=== PATIENT | male | born 1970 ===

== ENCOUNTER 2018-06-25 07:05 | Observation (INO) | payer OTHER ==
[2018-06-25] MEDS ORDERED: Albuterol-Ipratrop 3 mg / 0.5 (3 ml) UD INH STA (07:07)
[2018-06-25] MEDS: Albuterol-Ipratrop 3 mg / 0.5 (3 ml) UD INH STA ×2 (07:10→07:30)
[2018-06-25] MEDS ORDERED: Albuterol-Ipratrop 3 mg / 0.5 (3 ml) UD ONE (07:12)
[2018-06-25] MEDS ORDERED: Magnesium Sulfate 1 gm in D5W 1 GM/100 ML BAG IV ONE (07:32)
[2018-06-25] MEDS ORDERED: Albuterol 0.083% Inhal Sol (2.5 mg/3 mL) UD IH STA ×3 (07:33→09:11)
[2018-06-25 07:40] LABS: BASO # 0.1 K/uL (0.0-0.2); BASO % 0.6 % (0.0-2.0); EOS # 0.9 K/uL (0.0-0.7); EOS % 8.6 % (0.0-4.0); HEMOGLOBIN 16.9 g/dL (12.0-18.0); LYMPH # 1.5 K/uL (1.0-4.3); LYMPH % 13.6 % (20.0-40.0); MEAN CELL VOLUME 93.1 fL (80.0-94.0); MEAN CORPUSCULAR HEMOGLOBIN 32.6 pg (27.0-31.0); MEAN CORPUSCULAR HGB CONC 35.1 g/dL (33.0-37.0); MEAN PLATELET VOLUME 8.4 fL (7.2-11.7); MONO # 0.8 K/uL (0.0-0.8); MONO % 7.1 % (0.0-10.0); NEUT # 7.6 K/uL (1.8-7.0); NEUT % 70.1 % (50.0-75.0); NRBC % 0.1 % (0.0-2.0); RBC 5.19 Mil/uL (4.40-5.90); RED CELL DISTRIBUTION WIDTH 13.4 % (11.5-14.5); WHITE BLOOD COUNT 10.9 K/uL (4.8-10.8)
[2018-06-25 07:52] LABS: BLOOD UREA NITROGEN 19 mg/dL (9-20); CALCIUM 9.5 mg/dl (8.6-10.4); GFR NON-AFRICAN AMERICAN > 60
[2018-06-25 08:00] LABS: ALB/GLOB RATIO 1.1 (1.0-2.1); ALBUMIN 4.8 g/dL (3.5-5.0); ALT/SGPT 16 U/L (21-72); AST/SGOT 50 U/L (17-59)
--- NOTE | 2018-06-25 08:05 | C.PDOC ---
History Of Present Illness 47 year old male presents to ED with complaint of SOB and wheezing for 3-4 days. Patient has a PMHx of asthma. He was using his albuterol inhaler at home, but ran out. He admits to having a non-productive cough. He denies fever, chest pain, and palpitations. Time Seen by Provider: 06/25/18 07:08 Chief Complaint (Nursing): Shortness Of Breath History Per: Patient History/Exam Limitations: no limitations Onset/Duration Of Symptoms: Days (3-4) Current Symptoms Are (Timing): Still Present Current Respiratory Medications: Albuterol Associated Symptoms: denies: Fever, Chills, Chest Pain, Productive Cough Past Medical History Reviewed: Historical Data, Nursing Documentation, Vital Signs Vital Signs: Last Vital Signs Temp 99.1 F 06/25/18 07:06 Pulse 102 H 06/25/18 07:06 Resp 24 06/25/18 07:06 BP 159/119 H 06/25/18 07:06 Pulse Ox 90 L 06/25/18 07:06 Primary Care Provider: FAMILY PROVIDER,NO - Medical History PMH: Asthma, HTN, Hypercholesterolemia Surgical History: No Surg Hx Family History: States: Unknown Family Hx - Social History Hx Alcohol Use: Yes Hx Substance Use: No Review Of Systems Constitutional: Negative for: Fever, Chills ENT: Negative for: Nose Discharge, Nose Congestion, Throat Pain Cardiovascular: Negative for: Chest Pain, Palpitations Respiratory: Positive for: Cough, Shortness of Breath, Wheezing. Negative for: Hemoptysis, Sputum Gastrointestinal: Negative for: Nausea, Vomiting Physical Exam - Physical Exam Appears: Non-toxic, Other (mild distress; audible wheezing) Skin: Normal Color, Warm, Dry Head: Atraumatic, Normacephalic Neck: Normal ROM, Supple Chest: Symmetrical, No Deformity, No Tenderness Cardiovascular: Rhythm Regular, Other (mildly tachycardic) Respiratory: Accessory Muscle Use (mild), No Rales, No Rhonchi, Wheezing (diffuse expiratory wheezing bilaterally) Extremity: Capillary Refill (<2 seconds), No Swelling Extremity: Bilateral: Normal Color And Temperature, Normal ROM Pulses: Left Radial: Normal, Right Radial: Normal Neurological/Psych: Oriented x3, Normal Speech, Normal Cognition ED Course And Treatment - Laboratory Results Result Diagrams: 06/25/18 07:36 06/25/18 07:36 Lab Results: Total Bilirubin 1.4 mg/dL (0.2-1.3) H 06/25/18 07:36 AST 50 U/L (17-59) 06/25/18 07:36 ALT 16 U/L (21-72) L 06/25/18 07:36 Alkaline Phosphatase 90 U/L (38-126) 06/25/18 07:36 Total Protein 9.2 g/dL (6.3-8.3) H 06/25/18 07:36 Albumin 4.8 g/dL (3.5-5.0) 06/25/18 07:36 Globulin 4.5 gm/dL (2.2-3.9) H 06/25/18 07:36 Albumin/Globulin Ratio 1.1 (1.0-2.1) 06/25/18 07:36 ECG: Interpreted By Me, Viewed By Me (sinus tachycardia 115 bpm, normal axis, mild ST depressions V3-V5 - no prior EKG available) ECG Interpretation: Abnormal O2 Sat by Pulse Oximetry: 90 - Other Rad CXR X-Ray: Viewed By Me Interpretation: IMPRESSION: Mild medial right lower lobe atelectasis/infiltrate. Mild elevation of the right hemidiaphragm. Progress Note: CMP and CBC ordered for patient. CXR ordered for patient. Patient given solu-medrol, magnesium sulfate, and duoneb INH. EKG ordered for tele admission - abnormal, MEGHAN panel added, however patient has no chest pain. Disposition - Disposition - Scribe Statement The provider has reviewed the documentation as recorded by the Scribe (Anne Shay) All medical record entries made by the Scribe were at my direction and personally dictated by me. I have reviewed the chart and agree that the record accurately reflects my personal performance of the history, physical exam, medical decision making, and the department course for this patient. I have also personally directed, reviewed, and agree with the discharge instructions and disposition.
[2018-06-25 09:10] VITALS: BMI 26.6
[2018-06-25] MEDS ORDERED: Albuterol 0.083% Inhal Sol (2.5 mg/3 mL) UD ONE (09:21)
--- NOTE | 2018-06-25 10:38 | CP.PCM.HP ---
<Glory Sorto - Last Filed: 06/25/18 12:19> History of Present Illness - History of Present Illness History of Present Illness: Medicine Note for Hospitalist Service This is a 47 year old male with PMHx of Asthma (no prior intubations), Hypertension, and Hyperlipidemia who presented to the ED with shortness of breath, wheezing and a nonproductive cough for 4 days. Patient reports the past 4 days his Asthma has worsened. He has a nonproductive cough and reports he used all of his Albuterol inhaler. He followed up with a PCP last year - who placed on a medications for his HTN, HLD, and Asthma. Patient has not followed up with the PMD and therefore ran out of refills >6 months ago. He reports intermittent chest pain, not related to his breathing for the past 6 months. He reports becoming fatigued when ambulating long distances. He admits he can lay down flat at night and denied any lower extremity swelling. Admitted to a nonproductive cough, chills; denied fever, chest pain, abdominal pain, n/v/d/c, or urinary complaints. PMHx: As noted above PSHx: Denied Meds: Albuterol HFA as needed All: NKDA SHx: Admitted to smoking cigars 1 every few months for 1 year, admitted to drinking 6 beers every Tuesday, denied illicit drug use. Patient works in [employer], reports wearing PPE when there is smoke or dust during work. FHx: Unremarkable denied any cardiac, diabetes, or malignancies Present on Admission - Present on Admission Any Indicators Present on Admission: No Past Patient History - Past Social History Smoking Status: Never Smoked - CARDIAC Hx Hypercholesterolemia: Yes Hx Hypertension: Yes - PULMONARY Hx Asthma: Yes - PSYCHIATRIC Hx Substance Use: No - SURGICAL HISTORY Hx Surgeries: No - ANESTHESIA Hx Anesthesia: No Meds Allergies/Adverse Reactions: Allergies Allergy/AdvReac Type Severity Reaction Status Date / Time No Known Allergies Allergy Unverified 06/25/18 07:18 Physical Exam - Constitutional Appears: No Acute Distress - Head Exam Head Exam: NORMAL INSPECTION, NORMOCEPHALIC - Eye Exam Eye Exam: EOMI, Normal appearance, PERRL Pupil Exam: NORMAL ACCOMODATION - ENT Exam ENT Exam: Mucous Membranes Moist - Respiratory Exam Respiratory Exam: Wheezes (All throughout - lung bases ) - Cardiovascular Exam Cardiovascular Exam: Tachycardia - GI/Abdominal Exam GI & Abdominal Exam: Normal Bowel Sounds, Soft. absent: Distended, Tenderness - Extremities Exam Extremities exam: Positive for: normal inspection, pedal pulses present. Negative for: pedal edema, tenderness - Neurological Exam Neurological exam: Alert, CN II-XII Intact, Oriented x3 - Psychiatric Exam Psychiatric exam: Normal Affect, Normal Mood - Skin Skin Exam: Dry, Intact, Normal Color, Warm Results - Vital Signs Recent Vital Signs: Last Vital Signs Temp 99.1 F 06/25/18 07:06 Pulse 120 H 06/25/18 10:01 Resp 17 06/25/18 10:01 BP 125/82 06/25/18 10:01 Pulse Ox 94 L 06/25/18 10:01 - Labs Result Diagrams: 06/25/18 07:36 06/25/18 07:36 Labs: Laboratory Results - last 24 hr 06/25/18 06/25/18 07:36 07:36 WBC 10.9 H RBC 5.19 Hgb 16.9 Hct 48.3 MCV 93.1 MCH 32.6 H MCHC 35.1 RDW 13.4 Plt Count 298 MPV 8.4 Neut % (Auto) 70.1 Lymph % (Auto) 13.6 L [place] % (Auto) 7.1 Eos % (Auto) 8.6 H Baso % (Auto) 0.6 Neut # (Auto) 7.6 H Lymph # (Auto) 1.5 [place] # (Auto) 0.8 Eos # (Auto) 0.9 H Baso # (Auto) 0.1 Sodium 135 Potassium 5.4 H Chloride 98 Carbon Dioxide 26 Anion Gap 16 BUN 19 Creatinine 0.6 L Est GFR ( Amer) > 60 Est GFR (Non-Af Amer) > 60 Random Glucose 111 H Calcium 9.5 Total Bilirubin 1.4 H AST 50 ALT 16 L Alkaline Phosphatase 90 Total Protein 9.2 H Albumin 4.8 Globulin 4.5 H Albumin/Globulin Ratio 1.1 Assessment & Plan - Assessment and Plan (Free Text) Plan: Asthma Exacerbation Imaging: - CXR: Possible RML infiltrate Management: - Patient received albuteral x 3, solumedrol 125mg, Terbutaline, Magnesium in the ED - Started Duonebs Q6H - Started Solumedrol 40mg Q6H - Started Brovana Q12H - Started Singular 10mg QHS - Rocephin x 1 dose, Azithromycin 500mg PO daily x 5 days Hx Hypertension Hx of Intermittent Chest Pain throughout past 6 months - EKG- sinus tachycardia 115 bpm, normal axis, mild ST depressions V3-V5 - no prior EKG available - Patient is denied any chest pain at this moment - Admits to being on 1 medication, last taken > 6 months ago, noncompliant - No family hx of cardiac diseases Imaging: - ECHO: ordered, pending Management: - Initial MEGHAN - negative but elevated CKMB, f/u 2 more MEGHAN with correlating EKGs - Normotensive on admission, will monitor throughout admission Hx Hyperlipidemia - Patient reports he was on a medication, last taken > 6 months ago, noncompliant - F/U lipid panel, hemoglobin A1C, thyroid panel Prophylactic Measures - GI PPX: Protonix - due to anticipated prolonged use of steroids - DVT PPX: SCDs are suffice, patient is low risk - VTE not indicated DW Dr. Eli, Glory Sorto DO, PGY2 <Pelon Eli H - Last Filed: 06/25/18 14:14> Results - Vital Signs Recent Vital Signs: Last Vital Signs Temp 98.7 F 06/25/18 12:00 Pulse 100 H 06/25/18 12:00 Resp 17 06/25/18 12:00 BP 151/84 H 06/25/18 12:00 Pulse Ox 98 06/25/18 12:00 - Labs Result Diagrams: 06/25/18 07:36 06/25/18 07:36 Labs: Laboratory Results - last 24 hr 06/25/18 06/25/18 07:36 07:36 WBC 10.9 H RBC 5.19 Hgb 16.9 Hct 48.3 MCV 93.1 MCH 32.6 H MCHC 35.1 RDW 13.4 Plt Count 298 MPV 8.4 Neut % (Auto) 70.1 Lymph % (Auto) 13.6 L [place] % (Auto) 7.1 Eos % (Auto) 8.6 H Baso % (Auto) 0.6 Neut # (Auto) 7.6 H Lymph # (Auto) 1.5 [place] # (Auto) 0.8 Eos # (Auto) 0.9 H Baso # (Auto) 0.1 Sodium 135 Potassium 5.4 H Chloride 98 Carbon Dioxide 26 Anion Gap 16 BUN 19 Creatinine 0.6 L Est GFR ( Amer) > 60 Est GFR (Non-Af Amer) > 60 Random Glucose 111 H Calcium 9.5 Total Bilirubin 1.4 H AST 50 ALT 16 L Alkaline Phosphatase 90 Total Creatine Kinase 311 H CK-MB (Mass) 3.79 H Troponin I < 0.0120 NT-Pro-B Natriuret Pep < 11.1 Total Protein 9.2 H Albumin 4.8 Globulin 4.5 H Albumin/Globulin Ratio 1.1 Attending/Attestation - Attestation I have personally seen and examined this patient.: Yes I have fully participated in the care of the patient.: Yes I have reviewed all pertinent clinical information: Yes Notes (Text): 06/25/18 14:11 Medical attending: Patient was seen and examined by me. Agree with the above note by the resident The patient was not in any acute distress when I came and saw with the medical laboratory manager He was speaking in full sentences, on exam there were wheezing. 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
--- NOTE | 2018-06-25 10:53 | RAD ---
HISTORY: SOB COMPARISON: None available TECHNIQUE: Chest, one view. FINDINGS: Examination limited by habitus. LUNGS: Mild medial right lower lobe atelectasis/infiltrate. Please note that chest x-ray has limited sensitivity for the detection of pulmonary masses. PLEURA: No significant pleural effusion identified. No definite pneumothorax . CARDIOVASCULAR: Heart size appears top normal. No significant atherosclerotic calcification present. OSSEOUS STRUCTURES: No acute osseous abnormality identified. VISUALIZED UPPER ABDOMEN: Elevation of the right hemidiaphragm. OTHER FINDINGS: None. IMPRESSION: Mild medial right lower lobe atelectasis/infiltrate. Mild elevation of the right hemidiaphragm.
[2018-06-25 11:02] LABS: CK-MB 3.79 ng/mL (0.0-3.38)
[2018-06-25 11:12] LABS: B-TYPE NATRIURETIC PEPTIDE < 11.1 pg/mL (0-450)
[2018-06-25] MEDS: Albuterol-Ipratrop 3 mg / 0.5 (3 ml) UD INH SCH ×2 (14:38→19:39)
[2018-06-25 17:43] LABS: CK-MB 2.46 ng/mL (0.0-3.38)
[2018-06-25] MEDS: Arformoterol 15 mcg/2 ml Inh Sol INH SCH (21:30)
[2018-06-25] MEDS: MethylPREDNISolone 40 mg Vial IVP SCH (21:31)
[2018-06-25] MEDS ORDERED: MethylPREDNISolone 40 mg Vial IVP SCH (22:00)
[2018-06-26] MEDS: MethylPREDNISolone 40 mg Vial IVP SCH ×3 (03:19→17:29)
[2018-06-26 04:00] LABS: BASO % 0.1 % (0.0-2.0); HEMOGLOBIN 15.5 g/dL (12.0-18.0); LYMPH # 0.7 K/uL (1.0-4.3); LYMPH % 4.9 % (20.0-40.0); MEAN CELL VOLUME 94.1 fL (80.0-94.0); MEAN CORPUSCULAR HEMOGLOBIN 31.3 pg (27.0-31.0); MEAN CORPUSCULAR HGB CONC 33.3 g/dL (33.0-37.0); MEAN PLATELET VOLUME 8.2 fL (7.2-11.7); MONO # 0.6 K/uL (0.0-0.8); MONO % 3.9 % (0.0-10.0); NEUT # 13.9 K/uL (1.8-7.0); NEUT % 91.1 % (50.0-75.0); PLATELET COUNT 283 K/uL (130-400); RBC 4.94 Mil/uL (4.40-5.90); RED CELL DISTRIBUTION WIDTH 13.4 % (11.5-14.5); WHITE BLOOD COUNT 15.2 K/uL (4.8-10.8)
[2018-06-26 04:27] LABS: LDL CHOLESTEROL 183 mg/dL (0-129)
[2018-06-26 04:29] LABS: CK-MB 2.17 ng/mL (0.0-3.38)
[2018-06-26 04:37] LABS: BANDS 1 % (0-2); LYMPHOCYTE 4 % (20-40); MONOCYTE 3 % (0-10); NEUTROPHIL 92 % (50-75); PLATELET ESTIMATE NORMAL (NORMAL); TOTAL CELLS COUNTED 100
[2018-06-26 04:39] LABS: ALB/GLOB RATIO 1.3 (1.0-2.1); ALBUMIN 4.3 g/dL (3.5-5.0); ALT/SGPT 18 U/L (21-72); AST/SGOT 21 U/L (17-59); BLOOD UREA NITROGEN 17 mg/dL (9-20); CALCIUM 9.3 mg/dl (8.6-10.4); GFR NON-AFRICAN AMERICAN > 60; HDL CHOLESTEROL 40 mg/dL (30-70)
[2018-06-26] MEDS: Albuterol-Ipratrop 3 mg / 0.5 (3 ml) UD INH SCH ×2 (07:53→20:05)
--- NOTE | 2018-06-26 08:55 | CP.PCM.PN ---
<AlyssaCy - Last Filed: 06/26/18 11:41> Subjective - Date & Time of Evaluation Date of Evaluation: 06/26/18 Time of Evaluation: 09:00 - Subjective Subjective: PGY1 Medicine progress note for Dr. Gamez Pt seen and examined at bedside. Resting comfortably. No acute events overnight. Denies acute complaints. Denies fever, chills, chest pain, sob, palpitations, abdominal pain, n/v/d, swelling, leg pain , headache, dizziness, lightheadedness. Ambulating well. Objective - Vital Signs/Intake and Output Vital Signs (last 24 hours): Temp Pulse Resp BP Pulse Ox 97.9 F 78 18 126/85 95 06/26/18 07:00 06/26/18 07:45 06/26/18 07:00 06/26/18 07:00 06/26/18 07:45 - Medications Medications: Current Medications Albuterol/Ipratropium (Duoneb 3 Mg/0.5 Mg (3 Ml) Ud) 3 ml INH RQ6 PANKAJ Last Admin: 06/26/18 07:53 Dose: 3 ml Arformoterol Tartrate (Brovana) 15 mcg INH RQ12@1000,2200 PANKAJ Last Admin: 06/25/18 21:30 Dose: 15 mcg Azithromycin (Zithromax) 500 mg PO DAILY [facility]; Protocol Stop: 06/30/18 10:01 Methylprednisolone (Solu-Medrol) 40 mg IVP Q6H [facility] Last Admin: 06/26/18 03:19 Dose: 40 mg Montelukast Sodium (Singulair) 10 mg PO HS [facility] Last Admin: 06/25/18 21:30 Dose: 10 mg Pantoprazole Sodium (Protonix Ec Tab) 40 mg PO DAILY [facility] Pneumococcal Polyvalent Vaccine (Pneumovax 23 Vaccine) 0.5 ml SC .ONCE ONE Stop: 06/27/18 12:48 - Labs Labs: 06/26/18 03:57 06/26/18 03:57 - Additional Findings Additional findings: - Constitutional Appears: No Acute Distress - Head Exam Head Exam: NORMAL INSPECTION, NORMOCEPHALIC - Eye Exam Eye Exam: EOMI, Normal appearance, PERRL Pupil Exam: NORMAL ACCOMODATION - ENT Exam ENT Exam: Mucous Membranes Moist - Respiratory Exam Respiratory Exam: End expiratory wheezes throughout. Absent: rhonchi, rales, respiratory distress, stridor - Cardiovascular Exam Cardiovascular Exam: RRR, +s1/+s2. Absent: tachycardia - GI/Abdominal Exam GI & Abdominal Exam: Normal Bowel Sounds, Soft. absent: Distended, Tenderness - Extremities Exam Extremities exam: Positive for: normal inspection, pedal pulses present. Negative for: pedal edema, tenderness - Neurological Exam Neurological exam: Alert, Oriented x3 - Psychiatric Exam Psychiatric exam: Normal Affect, Normal Mood - Skin Skin Exam: Dry, Intact, Normal Color, Warm Assessment and Plan - Assessment and Plan (Free Text) Assessment: Asthma Exacerbation Imaging: - CXR: Mild medial RLL atelectasis/infiltrate. Mild elevation of the right hemidiaphragm. Management: - Patient received albuteral x 3, solumedrol 125mg, Terbutaline, Magnesium in the ED - Duonebs Q6H - Solumedrol 40mg Q6H - Brovana Q12H - Singular 10mg QHS - Rocephin x 1 dose given, Azithromycin 500mg PO daily x 5 days Hx Hypertension Hx of Intermittent Chest Pain throughout past 6 months - EKG- sinus tachycardia 115 bpm, normal axis, mild ST depressions V3-V5 - no prior EKG available - Patient is denied any chest pain at this moment - Admits to being on 1 medication, last taken > 6 months ago, noncompliant - No family hx of cardiac diseases Imaging: - ECHO: ordered, pending Management: - Troponin x3 are negative - Normotensive on admission, will monitor throughout admission Hx Hyperlipidemia - Patient reports he was on a medication, last taken > 6 months ago, noncompliant - Lipid panel shows TG/CHL/LDL/HDL is 70/229/183/40 - Hemoglobin A1C is 5.8 - TSH/FT4 are normal at 0.9/0.9 - Will add Crestor 5 mg PO QHS tonight Prophylactic Measures - GI PPX: Protonix - due to anticipated prolonged use of steroids - DVT PPX: SCDs, chemical VTE not indicated Discussed with Dr. Franco Shah PGY1 <Lorne Gamez - Last Filed: 06/27/18 19:04> Objective - Vital Signs/Intake and Output Vital Signs (last 24 hours): Temp Pulse Resp BP Pulse Ox 98.3 F 75 20 130/91 H 94 L 06/27/18 08:39 06/27/18 11:43 06/27/18 08:39 06/27/18 08:39 06/27/18 15:30 - Labs Labs: 06/27/18 06:35 06/27/18 06:35 Attending/Attestation - Attestation I have personally seen and examined this patient.: Yes I have fully participated in the care of the patient.: Yes I have reviewed all pertinent clinical information, including history, physical exam and plan: Yes Notes (Text): SEEN AND EXAMINED ASTHMA EXACERBATION OF ASTHMA HYPERTENSION HYPERLIPIDEMIA CONTINUE SOLUMEDROL AND ANTIBIOTICS PATIENT HAS BILATERAL WHEEZING POSSIBLE DISCHARGE TOMORROW IF HE GETS BETTER
[2018-06-26] MEDS ORDERED: Albuterol-Ipratrop 3 mg / 0.5 (3 ml) UD INH STA (08:59)
[2018-06-26] MEDS: Enoxaparin 40 mg Syringe SC SCH (09:29)
[2018-06-26] MEDS: Pantoprazole 40 mg EC Tab PO SCH (09:29)
[2018-06-26] MEDS ORDERED: MethylPREDNISolone 40 mg Vial IVP SCH (12:00)
--- NOTE | 2018-06-26 14:57 | CARD ---
APPROVED REPORT Date of service: 06/26/2018 EXAM: Two-dimensional and M-mode echocardiogram with Doppler and color Doppler. Other Information Quality : GoodRhythm : RISK FACTORS Hypertension Hyperlipidemia 2D DIMENSIONS IVSd1.0 (0.7-1.1cm)LVDd4.3 (3.9-5.9cm) PWd1.0 (0.7-1.1cm)LA Lmxbhb07 (18-58mL) LVDs2.9 (2.5-4.0cm)FS (%) 33.0 % LVEF (%)61.8 (>50%)LVEF (José's)64.80 % M-Mode DIMENSIONS Left Atrium (MM)3.07 (2.5-4.0cm)IVSd0.86 (0.7-1.1cm) Aortic Root3.07 (2.2-3.7cm)LVDd5.73 (4.0-5.6cm) Aortic Cusp Exc.1.88 (1.5-2.0cm)PWd0.92 (0.7-1.1cm) FS (%) 34 %LVDs3.79 (2.0-3.8cm) LVEF (%)62 (>50%) Mitral Valve MV E Lktvgvcp72.6cm/sMV A Qhjdnybz95.7cm/sE/A ratio1.0 TDI Lateral E' Peak V13.60cm/sMedial E' Peak V9.19cm/sE/Lateral E'6.6 E/Medial E'9.7 <Conclusion> tds. poor window. lv size appears mildly dilated. normal size la,ra & rv. normal lv wall thickness,systolic & diastolic function with lvef of 60-65%. aortic & pv not well seen ,probably normal. mitral & tv appears normal. nomral doppler. nomral size aortic root. no pericrdial effusion.
--- NOTE | 2018-06-26 15:26 | CARD ---
APPROVED REPORT Date of service: 06/25/2018 EKG Measurement Heart [id number] <Conclusion> Sinus tachycardia ST & T wave abnormality,non specific Abnormal ECG
[2018-06-26 17:56] VITALS: RESP 20
[2018-06-26] MEDS: Arformoterol 15 mcg/2 ml Inh Sol INH SCH (20:05)
[2018-06-27] MEDS: Albuterol-Ipratrop 3 mg / 0.5 (3 ml) UD INH SCH ×3 (01:32→13:46)
[2018-06-27] MEDS: MethylPREDNISolone 40 mg Vial IVP SCH ×2 (02:30→10:11)
[2018-06-27 06:48] LABS: BASO % 0.1 % (0.0-2.0); HEMOGLOBIN 15.5 g/dL (12.0-18.0); LYMPH # 1.4 K/uL (1.0-4.3); MEAN CELL VOLUME 94.7 fL (80.0-94.0); MEAN CORPUSCULAR HEMOGLOBIN 31.9 pg (27.0-31.0); MEAN CORPUSCULAR HGB CONC 33.7 g/dL (33.0-37.0); MEAN PLATELET VOLUME 8.5 fL (7.2-11.7); MONO # 0.9 K/uL (0.0-0.8); MONO % 5.4 % (0.0-10.0); NEUT % 86.5 % (50.0-75.0); NRBC % 0.1 % (0.0-2.0); PLATELET COUNT 304 K/uL (130-400); RBC 4.85 Mil/uL (4.40-5.90); RED CELL DISTRIBUTION WIDTH 13.6 % (11.5-14.5); WHITE BLOOD COUNT 17.3 K/uL (4.8-10.8)
[2018-06-27 07:33] LABS: ALB/GLOB RATIO 1.5 (1.0-2.1); ALBUMIN 4.2 g/dL (3.5-5.0); ALT/SGPT 25 U/L (21-72); AST/SGOT 31 U/L (17-59); BLOOD UREA NITROGEN 17 mg/dL (9-20); GFR NON-AFRICAN AMERICAN > 60
[2018-06-27 08:33] LABS: LYMPHOCYTE 10 % (20-40); MONOCYTE 5 % (0-10); NEUTROPHIL 85 % (50-75); PLATELET ESTIMATE NORMAL (NORMAL); TOTAL CELLS COUNTED 100
[2018-06-27 08:41] VITALS: BP 130/91; TEMP 98.3; O2SAT 94
--- NOTE | 2018-06-27 09:43 | CP.PCM.DIS ---
Provider - Provider Date of Admission: 06/25/18 10:21 Attending physician: Lorne Gamez MD Time Spent in preparation of Discharge (in minutes): 35 Diagnosis - Discharge Diagnosis (1) Community acquired pneumonia Status: Acute (2) Asthma Status: Acute (3) Dyslipidemia Status: Chronic (4) Hypertension Status: Chronic Hospital Course - Lab Results Lab Results: Most Recent Lab Values WBC 17.3 K/uL (4.8-10.8) H 06/27/18 06:35 RBC 4.85 Mil/uL (4.40-5.90) 06/27/18 06:35 Hgb 15.5 g/dL (12.0-18.0) 06/27/18 06:35 Hct 45.9 % (35.0-51.0) 06/27/18 06:35 MCV 94.7 fL (80.0-94.0) H 06/27/18 06:35 MCH 31.9 pg (27.0-31.0) H 06/27/18 06:35 MCHC 33.7 g/dL (33.0-37.0) 06/27/18 06:35 RDW 13.6 % (11.5-14.5) 06/27/18 06:35 Plt Count 304 K/uL (130-400) 06/27/18 06:35 MPV 8.5 fL (7.2-11.7) 06/27/18 06:35 Neut % (Auto) 86.5 % (50.0-75.0) H 06/27/18 06:35 Lymph % (Auto) 8.0 % (20.0-40.0) L 06/27/18 06:35 [place] % (Auto) 5.4 % (0.0-10.0) 06/27/18 06:35 Eos % (Auto) 0.0 % (0.0-4.0) 06/27/18 06:35 Baso % (Auto) 0.1 % (0.0-2.0) 06/27/18 06:35 Neut # (Auto) 15.0 K/uL (1.8-7.0) H 06/27/18 06:35 Lymph # (Auto) 1.4 K/uL (1.0-4.3) 06/27/18 06:35 [place] # (Auto) 0.9 K/uL (0.0-0.8) H 06/27/18 06:35 Eos # (Auto) 0.0 K/uL (0.0-0.7) 06/27/18 06:35 Baso # (Auto) 0.0 K/uL (0.0-0.2) 06/27/18 06:35 Neutrophils % (Manual) 85 % (50-75) H 06/27/18 06:35 Band Neutrophils % 1 % (0-2) 06/26/18 03:57 Lymphocytes % (Manual) 10 % (20-40) L 06/27/18 06:35 Monocytes % (Manual) 5 % (0-10) 06/27/18 06:35 Platelet Estimate Normal (NORMAL) 06/27/18 06:35 RBC Morphology Normal 06/26/18 03:57 Sodium 136 mmol/L (132-148) 06/27/18 06:35 Potassium 4.0 mmol/L (3.6-5.2) 06/27/18 06:35 Chloride 99 mmol/L (98-107) 06/27/18 06:35 Carbon Dioxide 23 mmol/L (22-30) 06/27/18 06:35 Anion Gap 18 (10-20) 06/27/18 06:35 BUN 17 mg/dL (9-20) 06/27/18 06:35 Creatinine 0.6 mg/dL (0.8-1.5) L 06/27/18 06:35 Est GFR ( Amer) > 60 06/27/18 06:35 Est GFR (Non-Af Amer) > 60 06/27/18 06:35 Random Glucose 150 mg/dL (75-110) H 06/27/18 06:35 Hemoglobin A1c 5.8 % (4.2-6.5) 06/26/18 03:57 Calcium 9.0 mg/dl (8.6-10.4) 06/27/18 06:35 Phosphorus 3.4 mg/dL (2.5-4.5) 06/27/18 06:35 Magnesium 2.1 mg/dL (1.6-2.3) 06/27/18 06:35 Total Bilirubin 0.3 mg/dL (0.2-1.3) 06/27/18 06:35 AST 31 U/L (17-59) 06/27/18 06:35 ALT 25 U/L (21-72) 06/27/18 06:35 Alkaline Phosphatase 85 U/L (38-126) 06/27/18 06:35 Total Creatine Kinase 170 U/L (55-170) 06/26/18 03:57 CK-MB (Mass) 2.17 ng/mL (0.0-3.38) 06/26/18 03:57 Troponin I < 0.0120 ng/mL (0.00-0.120) 06/26/18 03:57 NT-Pro-B Natriuret Pep < 11.1 pg/mL (0-450) 06/25/18 07:36 Total Protein 7.0 g/dL (6.3-8.3) 06/27/18 06:35 Albumin 4.2 g/dL (3.5-5.0) 06/27/18 06:35 Globulin 2.9 gm/dL (2.2-3.9) 06/27/18 06:35 Albumin/Globulin Ratio 1.5 (1.0-2.1) 06/27/18 06:35 Triglycerides 70 mg/dL (0-149) 06/26/18 03:57 Cholesterol 229 mg/dL (0-199) H 06/26/18 03:57 LDL Cholesterol Direct 183 mg/dL (0-129) H 06/26/18 03:57 HDL Cholesterol 40 mg/dL (30-70) 06/26/18 03:57 Free T4 0.90 ng/dL (0.78-2.19) 06/26/18 03:57 TSH 3rd Generation 0.90 mIU/L (0.46-4.68) 06/26/18 03:57 - Hospital Course Hospital Course: On admission: This is a 47 year old male with PMHx of Asthma (no prior intubations), Hypertension, and Hyperlipidemia who presented to the ED with shortness of breath, wheezing and a nonproductive cough for 4 days. Patient reports the past 4 days his Asthma has worsened. He has a nonproductive cough and reports he used all of his Albuterol inhaler. He followed up with a PCP last year - who placed on a medications for his HTN, HLD, and Asthma. Patient has not followed up with the PMD and therefore ran out of refills >6 months ago. He reports intermittent chest pain, not related to his breathing for the past 6 months. He reports becoming fatigued when ambulating long distances. He admits he can lay down flat at night and denied any lower extremity swelling. Admitted to a nonproductive cough, chills; denied fever, chest pain, abdominal pain, n/v/d/c, or urinary complaints. Hospital course: CXR: Mild medial RLL atelectasis/infiltrate. Mild elevation of the right hemidiaphragm. Pt noted to have prominent wheezing in the ED, treated with duonebs, steroids, magnesium. Started on azithromycin. Troponin x3 are negative. Echocardiogram (06/26) shows LVEF 60-65. Mildly dilated LV. Statin started for lipidemia. Pt's breathing status improved during hosptalization. Cough is reduced as well. On discharge interview, denies fever, chills, chest pain, sob, palpitations, abdominal pain, n/v/d, swelling, leg pain , headache, dizziness, lightheadedness, hemoptysis. This is a summary of the hospital course. Please see EMR for full details. Discharge Exam - Additional Findings Additional findings: - Constitutional Appears: No Acute Distress - Head Exam Head Exam: NORMAL INSPECTION, NORMOCEPHALIC - Eye Exam Eye Exam: EOMI, Mild scleral injection bilaterally, watery (no discharge), PERRL - ENT Exam ENT Exam: Mucous Membranes Moist. Minimal pharyngeal erythema, no exudate, no tonsillar enlargement. No lymphadenopathy. - Respiratory Exam Respiratory Exam: CTA bilaterally. Absent: wheezing, rhonchi, rales, respiratory distress, stridor - Cardiovascular Exam Cardiovascular Exam: RRR, +s1/+s2. Absent: tachycardia - GI/Abdominal Exam GI & Abdominal Exam: Normal Bowel Sounds, Soft. absent: Distended, Tenderness - Extremities Exam Extremities exam: Positive for: normal inspection, pedal pulses present. Negative for: pedal edema, tenderness - Neurological Exam Neurological exam: Alert, Oriented x3 - Psychiatric Exam Psychiatric exam: Normal Affect, Normal Mood - Skin Skin Exam: Dry, Intact, Normal Color, Warm Discharge Plan - Discharge Medications Prescriptions: Albuterol HFA [Ventolin HFA 90 mcg/actuation (8 g)] 2 puff IH [id number] PRN #1 inh aler PRN Reason: Shortness Of Breath Atorvastatin [Lipitor] 10 mg PO DIN #30 tab Azithromycin [Zithromax] 500 mg PO DAILY #3 tab Fluticasone/Vilanterol 100/25 [Breo Ellipta 100-25 MCG INH] 1 puff INH BID #1 inh Methylprednisolone [Medrol Dose Pack (21 tabs)] 4 mg PO DAILY #21 mg Montelukast [Singulair] 10 mg PO HS #30 tab - Follow Up Plan Condition: GOOD Disposition: HOME/ ROUTINE Instructions: Heart Healthy Diet, Azithromycin (Systemic), Asthma, Adult (DC), Albuterol, Atorvastatin, Fluticasone and Vilanterol, Methylprednisolone, Montelukast Additional Instructions: Pt is medically stable for discharge home. Pt should resume taking Albuterol a previously prescribed. Additionally, prescriptions provided: Albuterol HFA 2 puffs as needed for shortness of breath every 4-6 hours. #1 inhaler Atrovastatin 10 mg one tab by mouth once nightly with dinner, 8 pm. #30 Azithromycin 500 mg one tab by mouth once daily, 8 am. #3 Medrol dose pack. Breo Ellipta 1 puff daily at 8 am. #1 inhaler Singulair 10 mg one tab by mouth once nightly, 8 pm. #30 Please follow up with PMD or [facility] within 2 weeks of discharge. Please call to make an appointment. Should symptoms worsen, please head to the nearest Emergency Department for furt her evaluation. Instructions explained to pt, who understands and agrees with discharge plan. Paciente es mdicamente estable para la descarga de casa. Paciente debe reanudar la wilberto de albuterol a previamente prescrito. Adems, las prescripciones proporcionadas: Albuterol HFA 2 Puffs segn sea necesario para la dificultad para respirar cada 4-6 horas. #1 inhalador Atrovastatina 10 mg arden ficha por boca arden vez por noche con la ordnance officer, 8 pm. #30 Azitromicina 500 mg arden ficha por boca arden vez al da, 8 am. #3 Envase de dosis Medrol. Breo Ellipta 1 Puff diariamente a las 8 am. #1 inhalador Singulair 10 mg arden ficha por boca arden vez por noche, 8 pm. #30 Por favor, siga con PMD o [facility] dentro de 2 semanas de la descarga. Por favor llame al para hacer arden rosette. Si los sntomas empeoran, dirjase al Departamento de emergencias ms cercano para arden evaluacin adicional. Instrucciones explicadas a paciente, que entiende y est de acuerdo con el plan de maury. Referrals: [facility] [Outside]
[2018-06-27] MEDS: Enoxaparin 40 mg Syringe SC SCH (10:06)
[2018-06-27] MEDS: Pantoprazole 40 mg EC Tab PO SCH (10:08)
[2018-06-27] MEDS: Arformoterol 15 mcg/2 ml Inh Sol INH SCH (10:20)
[2018-06-27] MEDS ORDERED: Pneumococcal 23-Valent Vaccine SC ONE (12:47)
[2018-06-27 14:59] VITALS: PULSE 75
== END 2018-06-27 15:45 | disposition home or self-care (01) ==
LOC: C.ER 07:05 → C.9E 10:21 → C.6T 11:01
PROVIDERS: ADMIT Family Medicine; ATTEND Internal Medicine
DX: J18.9 Pneumonia, unspecified organism (principal); I51.7 Cardiomegaly; I11.9 Hypertensive heart disease without heart failure; E78.5 Hyperlipidemia, unspecified; J45.901 Unspecified asthma with (acute) exacerbation; J98.11 Atelectasis; Z91.19 Patient's noncompliance with other medical treatment and regimen
CPT/HCPCS: 36415; 71045; 80053; 80061; 83036; 83735; 83880; 84100; 84439; 84443; 84484; 85025; 90471; 90732; 93005; 93306; 94150; 94640; 96372; 96374; 99285; G0378; J0696; J1650; J2920; J2930; J3105; J3475